=== PATIENT | female | born 1960 | race Caucasian/White ===

== ENCOUNTER 2019-11-06 12:54 | Outpatient (CLI) | payer BC, SELFPAY ==
--- NOTE | 2019-11-06 13:11 | MR_ITS ---
WS: [id number] MRI BRAIN, ORBITS WITH AND WITHOUT CONTRAST HISTORY: VISION CHANGES COMPARISON: 12/13/2007 TECHNIQUE: Multiplanar imaging performed through the brain with Prohance 20 ml's IV. No acute infarcts are seen. Sheehan-white matter differentiation is well preserved. No susceptibility artifacts or prior lacunar infarcts. Ventricles and extra-axial spaces are normal. Clivus and pituitary gland are normal. Mild inferior descent beyond the foramen magnum of the RIGHT cerebellar tonsil. There is mild pegging tonsil. 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 Similar to the prior stud y. Similar appearance to the prior examination. Orbits: Retrobulbar fat is normal. Optic nerves and the extraocular muscles are normal. There is no e vini, atrophy or enlargement. No enhancement of the optic nerves. No flattening of the optic disc. No masses or abnormal enhancement along the optic radiations. Postcontrast images are negative for masses or vascular malformations. Dural venous sinuses are normal. Paranasal sinuses: Well aerated with no significant disease. Mastoid air cells: Normal. Calvarium and scalp: Normal. MR/MR head orbits wo/w* [id number] IMPRESSION: 1. Negative MRI orbits. No enhancing masses or optic nerve edema. 2. Mild inferior descent of the RIGHT cerebellar tonsil. Mild Chiari malformat ion was described on 12/13/2007. 3. No enhancing masses or prior infarcts.
== END 2019-11-06 12:55 | disposition home or self-care (01) ==
LOC: RADSHAW 13:01
PROVIDERS: PCP Internal Medicine; Visit Provider Internal Medicine
DX: H53.9 Unspecified visual disturbance (principal)
CPT/HCPCS: 70543; 70553; A9579

== ENCOUNTER → 2020-03-12 09:35 | Outpatient (BNVA) | payer BC, SELFPAY | PROVIDERS: PCP Internal Medicine; Visit Provider Nurse Practitioner Family | DX: Z20.828 Contact with and (suspected) exposure to other viral communicable diseases (principal) | CPT/HCPCS: 87635 ==

== ENCOUNTER → 2020-03-17 12:36 | Outpatient (BNVA) | payer BC, SELFPAY | PROVIDERS: PCP Internal Medicine; Visit Provider Nurse Practitioner Family | DX: Z20.828 Contact with and (suspected) exposure to other viral communicable diseases (principal) | CPT/HCPCS: 87635 ==

== ENCOUNTER → 2020-05-06 08:26 | Outpatient (BNVA) | payer BC, SELFPAY | PROVIDERS: PCP Internal Medicine; Visit Provider Nurse Practitioner Family | DX: Z20.828 Contact with and (suspected) exposure to other viral communicable diseases (principal) | CPT/HCPCS: 87635 ==

== ENCOUNTER 2020-07-01 13:35 | Outpatient (CLI) | payer BC, SELFPAY ==
--- NOTE | 2020-07-01 13:41 | XRR_ITS ---
PROCEDURE INFORMATION: Exam: XR Abdomen Exam date and time: 07/01/2020 2:14 PM Age: 60 years old Clinical indication: Pain; Other: RT flank; Prior surgery; Surgery type: Tubal, gb, appy; Additional info: R flank pain TECHNIQUE: Imaging protocol: XR of the abdomen. Views: Frontal supine view of the abdomen. 1 View. COMPARISON: No relevant prior studies available. FINDINGS: Gastrointestinal tract: Normal. No bowel dilation. Bones/joints: Unremarkable. XR/XR KUB [id number] IMPRESSION: No acute findings.
== END 2020-07-01 13:36 | disposition home or self-care (01) ==
LOC: RAD 13:38
PROVIDERS: PCP Internal Medicine; Visit Provider Internal Medicine
DX: R10.9 Unspecified abdominal pain (principal)
CPT/HCPCS: 74018

== ENCOUNTER 2020-07-07 09:41 | Outpatient (CLI) | payer BC, SELFPAY ==
--- NOTE | 2020-07-07 09:46 | MM_ITS ---
WS: [id number] SCREENING DIGITAL MAMMOGRAM WITH CAD HISTORY: SCREENING COMPARISON: 12/22/2018, 03/02/2017 and 02/12/2016 Bilateral CC and MLO views submitted. Computer aided detection analyzed. Breast composition: There are scattered areas of fibroglandular density. Lobulated soft tissue mass m easuring 7.5 mm seen on the LEFT CC projection in the posterior mid depth. Not definitely seen on the lateral projection. There is an ovoid nodule which is smooth-walled and not lobulated inferior to th e nipple line. Otherwise benign calcifications in each breast. MM/[place] [id number] IMPRESSION: BI-RADS: 0-Incomplete: Need additional imaging evaluation FOLLOW UP: Need Additional Imaging LEFT breast: Spot compression views (CC and MLO). True ML. Ultrasound to follow if abnormality persists.
== END 2020-07-07 09:42 | disposition home or self-care (01) ==
LOC: RADSHAW 09:44
PROVIDERS: PCP Internal Medicine; Visit Provider Internal Medicine
DX: Z12.31 Encounter for screening mammogram for malignant neoplasm of breast (principal); N63.20 Unspecified lump in the left breast, unspecified quadrant
CPT/HCPCS: 77067

== ENCOUNTER 2020-07-10 09:34 | Outpatient (CLI) | payer BC, SELFPAY ==
--- NOTE | 2020-07-10 09:37 | US_ITS ---
WS: [id number] ADDITIONAL VIEWS LEFT MAMMOGRAM LEFT BREAST ULTRASOUND HISTORY: ABNORMAL MAMMOGRAM COMPARISON: 07/07/2020, 12/22/2018 LEFT MAMMOGRAM: Spot compression views and true ML. Slightly lobulated mass in the central LEFT breast near 6:00 measures 6 x 8 mm persists on additional views. No distortion. No calcifications. LEFT BREAST ULTRASOUND 2-D and color Doppler imaging submitted. Ultrasound at 6:00, 4 cm from the nipple demonstrates a lobulated very hypoechoic mass poorly defined margins. There is a cystic and solid component in the mass is taller than wide. Mass measures 3 x 7 x 6 mm. US/US breast LT limited* [id number] IMPRESSION: BI-RADS: 4-Suspicious Finding-Biopsy Should Be Considered FOLLOW UP: Biopsy Recommended Ultrasound-guided biopsy recommended LEFT breast mass at 6:00.
== END 2020-07-10 09:35 | disposition home or self-care (01) ==
LOC: RADSHAW 09:35
PROVIDERS: PCP Internal Medicine; Visit Provider Internal Medicine
DX: R92.8 Other abnormal and inconclusive findings on diagnostic imaging of breast (principal); N63.25 Unspecified lump in the left breast, overlapping quadrants
CPT/HCPCS: 76642; 77065

== ENCOUNTER 2020-07-22 12:00 | Outpatient (CLI) | payer BC, SELFPAY ==
--- NOTE | 2020-07-22 12:04 | US_ITS ---
WS: [id number] ULTRASOUND-GUIDED LEFT BREAST BIOPSY HISTORY: ABNORMAL MAMMOGRAM COMPARISON: 07/10/2020 and 07/07/2020 Procedure, risks and complications are explained to the patient. Medications are reviewed. Consent is obtained. The mass in the LEFT breast is localized with ultrasound. Mass appears more cystic today at the 6:00 location. This may collapsed with the biopsy. Skin is cleansed with ChloraPrep and anesthetized with 1% buffered lidocaine. Small dermatome is made. Under sterile conditions mass is biopsied with a 14-g auge Achieve needle. Multiple core biopsies are performed. Material placed in formalin and sent [facility]. No complications encountered. Breast tissue marker (Bard ultrasound enhanced ribbon): Single. Patient left the radiology suite with no complications. Patient is instructed to return to [facility] with any concerns. US/[place] [id number] IMPRESSION: 1. Uncomplicated core needle biopsy cystic mass at 6:00 LEFT breast. Only 2 bi opsies performed as this mass collapsed after the second biopsy. PATHOLOGY: Fragments of benign breast tissue with apocrine metaplasia and colum jed cell hyperplasia. No atypia or malignancy. RECOMMENDATION: Diagnostic LEFT mammogram 6 months.
== END 2020-07-22 12:01 | disposition home or self-care (01) ==
PROVIDERS: PCP Internal Medicine; Visit Provider Internal Medicine
DX: R92.8 Other abnormal and inconclusive findings on diagnostic imaging of breast (principal); N63.25 Unspecified lump in the left breast, overlapping quadrants
CPT/HCPCS: 19083; 88305

== ENCOUNTER 2020-08-20 15:25 | Outpatient (CLI) | payer BC, SELFPAY ==
[2020-08-20 16:14] LABS: D Dimer 0.38 ug/mIFEU (0-0.59)
== END 2020-08-20 15:26 | disposition home or self-care (01) ==
PROVIDERS: PCP Internal Medicine; Visit Provider Nurse Practitioner
DX: U07.1 COVID-19 (principal)
CPT/HCPCS: 85378

== ENCOUNTER 2020-08-22 05:54 | Outpatient (CLI) | payer BC, SELFPAY ==
--- NOTE | 2020-08-22 06:14 | AMB.MCA ---
Patient Information Referred by: Teja Wagner [facility] Symptom onset date: 08/19/20 COVID 19 common symptoms: positive fever(s), chills, cough, non-productive cough, dyspnea, fatigue, body aches, headache(s), loss of sense of smell and/or taste, nasal congestion and nausea; negative productive cough COVID 19 other sytmptoms: positive lethargy; negative requiring oxygen or respiratory distress Severity: mild Treatment prior to arrival: acetaminophen and ibuprofen Other details: Positive COVID-19 results from [facility] scanned into the chart Criteria/Plan Inclusion/Exclusion Criteria weight >/= 40kg, + direct test </= 10 days ago and symptom onset </= 10 days ago BMI >/= 35, has immunosuppressive disease and age >/= 55 and has hypertension not requiring hospitalization, not requiring oxygen (if not chronically on oxygen) and no increase oxygen requirement (if chronically on oxygen) Patient education patient/family/caregiver received/reviewed fact sheet, Emergency Use Authorization/unapproved drug status discussed with patient/family/caregiver, alternatives to this treatment discussed with patient/family/caregiver, risks and benefits of medication reviewed with patient/family/caregiver, patient/family/caregiver given opportunity for questions, which were answered and patient consents to receiving Monoclonal Antibody Treatment Plan for treatment Meets criteria for Monoclonal Antibody infusion
[2020-08-22 06:26] VITALS: BP 166/93; PULSE 94; RESP 17; TEMP 37; O2SAT 96
[2020-08-22 06:42] VITALS: PULSE 92; RESP 17; O2SAT 95
[2020-08-22 06:44] VITALS: BMI 36.3
[2020-08-22 07:03] VITALS: PULSE 93; RESP 18; O2SAT 94
[2020-08-22 07:52] VITALS: BP 134/74; PULSE 97; RESP 16; O2SAT 95
== END 2020-08-22 07:56 | disposition home or self-care (01) ==
PROVIDERS: PCP Internal Medicine; Visit Provider Nurse Practitioner
DX: U07.1 COVID-19 (principal)

== ENCOUNTER → 2020-11-18 08:13 | Outpatient (BNVA) | payer BC, SELFPAY | PROVIDERS: PCP Internal Medicine; Visit Provider Nurse Practitioner Family | DX: Z20.822 Contact with and (suspected) exposure to COVID-19 (principal) | CPT/HCPCS: 87635 ==

== ENCOUNTER → 2021-04-30 12:33 | Outpatient (BNVA) | payer BC, SELFPAY | PROVIDERS: PCP Internal Medicine; Visit Provider Nurse Practitioner Family | DX: Z20.828 Contact with and (suspected) exposure to other viral communicable diseases (principal) | CPT/HCPCS: 87426; 87635 ==

== ENCOUNTER → 2021-05-11 09:31 | Outpatient (BNVA) | payer BC, SELFPAY | PROVIDERS: PCP Internal Medicine; Visit Provider Nurse Practitioner Family | DX: Z20.828 Contact with and (suspected) exposure to other viral communicable diseases (principal) | CPT/HCPCS: 87635; 87801 ==

== ENCOUNTER 2021-06-12 07:52 | Outpatient (CLI) | payer BC, SELFPAY ==
[2021-06-12 08:40] LABS: Basophils # 0.1 10^3/uL (0.0-0.1); Basophils % 0.8 %; Eosinophils # 0.4 10^3/uL (0.0-0.8); Eosinophils % 5.8 %; Hematocrit 41.9 % (37.0-47.0); Hemoglobin 13.9 g/dL (11.5-15.3); Lymphocytes # 1.5 10^3/uL (0.8-4.8); Lymphocytes % 24.5 %; Mean Corpuscular HGB Conc 33.2 g/dL (30.0-36.0); Mean Corpuscular Hemoglobin 30.3 pg (28.0-34.0); Mean Corpuscular Volume 91.5 fl (81-99); Mean Platelet Volume 9.5 fL (7.4-10.4); Monocytes # 0.6 10^3/uL (0.2-0.9); Monocytes % 10.4 %; Neutrophils # 3.52 10^3/uL (1.8-7.7); Neutrophils % 58.3 %; Nucleated Red Blood Cells % 0 %; Platelet Count 234 10^3/cmm (130-400); Red Blood Count 4.58 10^6/uL (4.1-5.3); Red Cell Distribution Width 12.8 % (12.1-15.1)
[2021-06-12 08:54] LABS: INR 1.22 (0.8-1.2)
[2021-06-12 09:26] LABS: 25 Hydroxy Vitamin D 45 ng/mL (30-100); Alanine Aminotransferase 23 U/L (0-33); Albumin Level 4.4 g/dL (3.5-5.2); Alkaline Phosphatase 81 IU/L (35-105); Anion Gap 12.9 (5-19); Aspartate Amino Transferase 17 U/L (0-32); Blood Urea Nitrogen 20 mg/dL (6-20); Calcium 10.1 mg/dL (8.5-10.5); Carbon Dioxide 27 mmol/L (22-29); Chloride 107 mmol/L (98-107); Globulin 2.6 g/dL (1.3-4.6); Glomerular Filtration Rate 85.9 mL/min (90-130); Glucose 94 mg/dL (65-115); Osmolality Calculated 298 mOsm/kg (285-295); Potassium 3.9 mmol/L (3.5-5.1); Sodium 143 mmol/L (136-145); Thyroid Stimulating Hormone 1.77 uIU/mL (0.27-4.20); Total Bilirubin 0.4 mg/dL (0.15-1.2)
== END 2021-06-12 07:53 | disposition home or self-care (01) ==
PROVIDERS: PCP Internal Medicine; Visit Provider Internal Medicine Medical Oncology
DX: I82.4Z3 Acute embolism and thrombosis of unspecified deep veins of distal lower extremity, bilateral (principal); I10 Essential (primary) hypertension; Z79.899 Other long term (current) drug therapy; Z79.01 Long term (current) use of anticoagulants
CPT/HCPCS: 36415; 80053; 82306; 84443; 85025; 85610

== ENCOUNTER 2021-06-16 15:50 | Outpatient (CLI) | payer BC, SELFPAY ==
--- NOTE | 2021-06-16 18:37 | ONC FU_ITS ---
Dr. Taylor Patient Follow-Up Note Patient: Enrrique Bo Unit #: [id number]: 1960 Dicatated By: Cristobal Taylor M.D.Date of Visit:Jun 16, 2021 Onc Med Follow-up/Prog Note Chief Complaint: Recurrent thrombosis/factor V Leiden mutation. History of Present Illness: This is a 60 year-old woman who is known to be heterozygous for the factor V Leiden mutation. She has had recurrent episodes of thromboembolism. Her records indicated that she had both deep vein thrombosis and pulmonary emboli. I was not able to find actual documentation for that. She also has had some episodes of superficial thrombophlebitis in the lower extremities, and she was confirmed to be heterozygous for the factor V Leiden mutation. She had remained chronically anticoagulated with warfarin. As of her followup visit in August 2017 she was able to transition her anticoagulation to rivaroxaban 20 mg daily. During follow-up she has tolerated the rivaroxaban with no adverse effects, and she has had no further thromboembolism. Her other medical illnesses include hypertension, GERD, migraine headaches, degenerative disease of the cervical spine, fibromyalgia, and depression. She has a history of systemic lupus erythematosus for which she had previously been on treatment with methotrexate and Plaquenil. She is a nonsmoker. She is seen for a follow-up visit. She has been feeling good generally. She does have some fatigue, but she says she has been working a lot. Her ECOG score is 0. She has good appetite. She has no fever, night sweats, or hot flashes. She does report having some sinus drainage. She does not complain of cough, and she has not been having shortness of breath or chest pain. She has no GI or complaints. She does have some joint pain, but it is not enough to affect her activity. She has headaches at least 2 or 3 days a week. She does not complain of dizziness. She occasionally has numbness in her right arm. She has no other focal neurologic symptoms. She does report having easy bruising. She has had no other bleeding manifestations. Medications: amLODIPine Besylate 1 Tablet (of 5 mg) Oral daily, Cholecalciferol 1 Capsule (of 5000 Unit(s)) Oral daily, hydroCHLOROthiazide 1 Tablet (of 25 mg) Oral daily, Immune Support Tablet, chewable Oral Take as Directed, Levothyroxine Sodium 1 Tablet (of 75 mcg) Oral daily, Losartan Potassium 1 Tablet (of 25 mg) Oral daily, Restasis (0.05 %) Emulsion Ophthalmic b.i.d., Unisom SleepTabs 1 Tablet (of 25 mg) Oral at bedtime, Vitamin B Complex 1 Tablet Oral daily, Wellbutrin SR 1 Tablet (of 150 mg) Tablet SR 12 HR Oral daily, Xarelto 1 Tablet (of 20 mg) Oral daily Allergies: Bactrim DS Vital Signs: Performed on Jun 16, 2021 16:07 Height - 68.00 in Weight - 239.4 lbs (HIGH) BSA - 2.21 sq.m BMI - 36.40 (HIGH) Temperature - 97.4 F (LOW) Pulse - 97 /min Respiration - 18 /min BP - 154/83 mm(hg) (HIGH) O2 Sat - 98 % Pain - 0 Fatigue - 4 Physical Examination: Constitutional - She looks good generally, Eyes - Sclerae nonicteric. Conjunctivae clear, ENMT - No lesions noted in the oral cavity, Hematologic/Lymphatic - No cervical, clavicular or axillary adenopathy, Respiratory - Lungs are clear with good air movement bilaterally, Cardiovascular - Heart rhythm is regular. There is no murmur, gallop, or rub noted, Abdomen - Soft. Liver and spleen are not enlarged. There is no abdominal mass or ascites noted and there is no inguinal adenopathy, Extremities - No edema, Neurologic - No focal neurologic deficits noted. Lab/Imaging: Test performed on Jun 12, 2021 08:11 Sodium 143 mmol/L TSH 1.77 uIU/mL Vitamin D (25-Hydroxy), Total 45 ng/mL Potassium 3.9 mmol/L Chloride 107 mmol/L CO2 27 mmol/L Anion Gap 12.9 BUN 20 mg/dL Creatinine 0.7 mg/dL Cr Clearance (Est) 144.9100 mL/min eGFR 85.9 mL/min Glucose 94 mg/dL Osmolality - Calculated 298 mOsm/kg Calcium 10.1 mg/dL Protein, Total 7.0 g/dL Albumin 4.4 g/dL Globulin 2.6 g/dL Bilirubin, Total 0.4 mg/dL ALT (SGPT) 23 U/L AST (SGOT) 17 U/L Alkaline Phosphatase 81 IU/L PT 15.70 SECONDS WBC 6.0 10 3/uL INR 1.22 RBC 4.58 10 6/uL HGB 13.9 g/dL HCT 41.9 % MCV 91.5 fl MCH 30.3 pg MCHC 33.2 g/dL RDW 12.8 % Platelet Count 234 10 3/cmm MPV 9.5 fL Neutrophils 3.52 10 3/uL Lymphocytes 1.5 10 3/uL Monocytes 0.6 10 3/uL Eosinophils 0.4 10 3/uL Basophils 0.1 10 3/uL Neutrophil % 58.3 % Lymphocyte % 24.5 % Monocyte % 10.4 % Eosinophil % 5.8 % Basophils % 0.8 % NRBC % 0 % Problem List: 1. 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 2. Hypertension. 3. Chronic migraine. 4. Degenerative arthritis/degenerative disease of the cervical spine. 5. Fibromyalgia. 6. She has a history of systemic lupus erythematosus, which has been inactive and has not been requiring treatment. 7. She has a history of depression. Problems Addressed with this Encounter and Plan: Patient with recurrent episodes of superficial thrombophlebitis involving the lower extremities. Her medical records also indicated prior history of deep vein thrombosis and pulmonary emboli. She was confirmed to have heterozygosity for the factor V Leiden mutation. She has been on chronic anticoagulation. As of August 2017 her treatment was transitioned to rivaroxaban 20 mg daily. During follow-up she has tolerated it with no adverse effects and with no evidence of any further thromboembolism. At this point she appears to be doing well clinically. She continues anticoagulation rivaroxaban 20 mg daily, and she will continue her regular follow-up with Dr. Sanders. I will see her again in 1 year. Signed By: Cristobal Taylor M.D. <<Signature on File>>
== END 2021-06-16 15:51 | disposition home or self-care (01) ==
LOC: ONCMED 15:51
PROVIDERS: PCP Internal Medicine; Visit Provider Internal Medicine Medical Oncology
DX: D68.51 Activated protein C resistance (principal); I82.4Z3 Acute embolism and thrombosis of unspecified deep veins of distal lower extremity, bilateral; I10 Essential (primary) hypertension; Z79.899 Other long term (current) drug therapy; K21.9 Gastro-esophageal reflux disease without esophagitis
CPT/HCPCS: G0463

== ENCOUNTER 2021-07-23 15:28 | Outpatient (CLI) | payer BC, SELFPAY ==
--- NOTE | 2021-07-23 15:40 | MM_ITS ---
WS: [id number] DIAGNOSTIC BILATERAL 3D TOMOSYNTHESIS DIGITAL MAMMOGRAM WITH CAD HISTORY: 6 MO F/U LT BREAST MASS, benign mass. COMPARISON: 07/22/2020, 07/10/2020 and 07/07/2020 TECHNIQUE: Bilateral craniocaudad, mediolateral oblique, and mediolateral views are submitted. Spot c ompression 3-D LEFT MLO and cc. Computer aided detection utilized. Breast composition: There are scattered areas of fibroglandular density. Biopsy clip along the 6:00 a xis LEFT breast with no adjacent nodule or mass. The asymmetry in the anterior RIGHT breast is stable . No new or increasing mass or calcification. MM/[place] [id number] IMPRESSION: BI-RADS: 2-Benign FOLLOW UP: 1 Year Follow-up
== END 2021-07-23 15:29 | disposition home or self-care (01) ==
PROVIDERS: PCP Internal Medicine; Visit Provider Internal Medicine
DX: N64.89 Other specified disorders of breast (principal)
CPT/HCPCS: 77062

== ENCOUNTER 2022-07-15 14:11 | Oncology outpatient (recurring) (ONCR) | payer BC, SELFPAY ==
[2022-07-15 14:47] LABS: Basophils % 0.6 %; Eosinophils # 0.2 10^3/uL (0.0-0.8); Eosinophils % 2.8 %; Hematocrit 42.9 % (37.0-47.0); Hemoglobin 14.2 g/dL (11.5-15.3); Lymphocytes # 1.7 10^3/uL (0.8-4.8); Lymphocytes % 26.2 %; Mean Corpuscular HGB Conc 33.1 g/dL (30.0-36.0); Mean Corpuscular Hemoglobin 30.3 pg (28.0-34.0); Mean Corpuscular Volume 91.5 fl (81-99); Mean Platelet Volume 9.5 fL (7.4-10.4); Monocytes # 0.6 10^3/uL (0.2-0.9); Monocytes % 9.2 %; Neutrophils # 3.97 10^3/uL (1.8-7.7); Nucleated Red Blood Cells % 0 %; Platelet Count 241 10^3/cmm (130-400); Red Blood Count 4.69 10^6/uL (4.1-5.3); Red Cell Distribution Width 12.6 % (12.1-15.1); White Blood Count 6.5 10^3/uL (4.0-10.0)
[2022-07-15 15:11] LABS: Alanine Aminotransferase 21 U/L (0-33); Albumin Level 4.5 g/dL (3.5-5.2); Alkaline Phosphatase 75 U/L (35-105); Anion Gap 13.5 (5-19); Aspartate Amino Transferase 18 U/L (0-32); Blood Urea Nitrogen 14 mg/dL (8-23); Calcium 9.6 mg/dL (8.5-10.5); Carbon Dioxide 29 mmol/L (22-29); Chloride 101 mmol/L (98-107); Globulin 2.6 g/dL (1.3-4.6); Glomerular Filtration Rate 63.9 mL/min (90-130); Glucose 99 mg/dL (65-115); Osmolality Calculated 291 mOsm/kg (285-295); Potassium 3.5 mmol/L (3.5-5.1); Sodium 140 mmol/L (136-145); Total Bilirubin 0.2 mg/dL (0.15-1.2); Total Protein 7.1 g/dL (6.6-8.7)
== END 2022-07-30 23:59 | disposition home or self-care (01) ==
PROVIDERS: PCP Internal Medicine; Visit Provider Nurse Practitioner Family
DX: I80.299 Phlebitis and thrombophlebitis of other deep vessels of unspecified lower extremity (principal); Z79.01 Long term (current) use of anticoagulants
CPT/HCPCS: 36415; 80053; 85025

== ENCOUNTER 2022-10-07 06:47 | Outpatient (CLI) | payer BC, SELFPAY ==
--- NOTE | 2022-10-07 | US_ITS ---
WS: [id number] ULTRASOUND SOFT TISSUE ABDOMEN CLINICAL INFORMATION: LUMP COMPARISON: None. FINDINGS: Ultrasound abdomen limited in the area of concern about the hysterectomy scar. In the area of concern, no evidence of underlying cystic or solid lesions. No fluid collections. No herniated bow el. No other suspicious findings. US/US abdomen limited [id number] IMPRESSION: No suspicious findings in the area of concern. This can be further evaluated CT abdomen pelvis if persistent concern.
== END 2022-10-07 06:48 | disposition home or self-care (01) ==
LOC: RAD 06:50
PROVIDERS: PCP Internal Medicine; Visit Provider Nurse Practitioner Family
DX: R19.00 Intra-abdominal and pelvic swelling, mass and lump, unspecified site (principal); R50.9 Fever, unspecified
CPT/HCPCS: 76705

== ENCOUNTER 2022-12-02 15:09 | Outpatient (CLI) | payer BC, SELFPAY ==
--- NOTE | 2022-12-02 15:27 | MM_ITS ---
WS: [id number] Bilateral screening 3D tomosynthesis digital mammogram, 12/02/2022 Clinical Data: SCREENING Comparison: 07/23/2021, 07/10/2020, 07/07/2020, 12/22/2018, 12/13/2017, 03/02/2017, 02/16/2017, 02/12/2016, 01/03/2015, 11/21/2013, 09/06/2006. Findings: The breast parenchymal pattern shows fibroglandular tissue. No spiculated masses or clustered calcifi cations are seen. There are no secondary signs of carcinoma. There is a biopsy clip in the central po rtion of the left breast. MM/[place] [id number] Impression: 1. Negative bilateral mammogram unchanged. 2. Recommend annual screening mammograms. BIRADS: 1-Negative FOLLOW UP: 1 Year Follow-up The CAD purchase order checker was used.
== END 2022-12-02 15:10 | disposition home or self-care (01) ==
PROVIDERS: PCP Internal Medicine; Visit Provider Internal Medicine
DX: Z12.31 Encounter for screening mammogram for malignant neoplasm of breast (principal)
CPT/HCPCS: 77063; 77067

== ENCOUNTER 2024-02-01 12:25 | Outpatient (CLI) | payer BC, SELFPAY ==
--- NOTE | 2024-02-01 12:34 | MM_ITS ---
WS: [id number] BILATERAL 3D TOMOSYNTHESIS DIGITAL SCREENING MAMMOGRAPHY WITH CAD CLINICAL INFORMATION: SCREENING HISTORY: Screening mammogram. No current complaints. COMPARISON: 2022 TECHNIQUE: Bilateral CC and MLO views. FINDINGS: Scattered fibroglandular densities bilaterally. No suspicious focal mass, asymmetry, calcifications, or architectural distortion. No evidence of malignancy. Stable biopsy clip LEFT breast. Few incidenta l punctate calcifications. MM/MM scr BI tomosynthesis [id number] IMPRESSION: DENSITY: There are scattered areas of fibroglandular density. BI-RADS: 2 - Benign. FOLLOW UP: 1 Year Follow-up Recommend return to annual screening mammography.
--- NOTE | 2024-02-01 12:34 | XR_ITS ---
WS: [id number] SCREENING DEXA SCAN [employer] CLINICAL INFORMATION: ASYMPTOMATIC POSTMENOPAUSAL STATUS COMPARISON: None. FINDINGS: The L1-L4 bone mineral density measures 1.210 g/cm2. This corresponds to a T score score of 0.3 and Z score of 0.4. Left femoral neck bone mineral density measures 1.180 g/cm2. This corresponds to a T score of 1.4 and Z score of 1.5. Right femoral neck bone mineral density measures 1.167 g/cm2. This corresponds to a T score 1.3of and Z score of 1.4. Mean femoral neck bone mineral density measures 1.174 g/cm2. This corresponds to a T score of 1.3 and Z score of 1.5. XR/XR DEXA axial skeleton* [id number] IMPRESSION: Normal bone mineralization. Patient's FRAX calculated 10 year probability for major osteoporotic fracture i s 4.9% and osteoporotic hip fracture is 0.0%.
== END 2024-02-01 12:26 | disposition home or self-care (01) ==
LOC: RAD 12:26
PROVIDERS: PCP Internal Medicine; Visit Provider Internal Medicine
DX: Z12.31 Encounter for screening mammogram for malignant neoplasm of breast (principal); Z78.0 Asymptomatic menopausal state
CPT/HCPCS: 77063; 77067; 77080

== ENCOUNTER 2024-08-14 10:40 | Outpatient (CLI) | payer BC, SELFPAY ==
--- NOTE | 2024-08-14 10:45 | MR_ITS ---
WS: [id number] MRI HEAD WITHOUT CONTRAST TECHNIQUE: Sagittal T1, T2 axial, T2 axial FLAIR, axial and coronal T1 images, axial susceptibility weighted imaging, axial diffusion weighted images, and coronal T2 images were obtained. CLINICAL INFORMATION: INVOLUNTARY MOVEMENTS/MIGRAINE HEADACHE COMPARISON: MRI 2020 FINDINGS: No evidence of restricted diffusion to suggest acute ischemia. Ventricular system and basal cisterns are patent. Minimal small vessel changes. No significant parenchymal volume loss. Normal posterior fossa. Normal vascular flow voids at the skull base. No extra-axial fluid collections. No evidence of m ass or mass effect. Paranasal sinuses and mastoid air cells are well aerated. Incidental RIGHT eccentric Chiari I malformation previously described. Normal fourth ventricle. No hemosiderin on the susceptibility weighted images. Normal optic chiasm and pituitary infundibulum. Temporal lobes and hippocampal formations are normal in appearance. MR/MR head wo con* [id number] IMPRESSION: 1. No evidence of restricted diffusion to suggest acute ischemia. 2. Minimal small vessel changes. No significant parenchymal volume loss. 3. No other acute findings.
== END 2024-08-14 10:41 | disposition home or self-care (01) ==
LOC: RAD 10:41
PROVIDERS: PCP Internal Medicine; Visit Provider Nurse Practitioner Family
DX: R25.9 Unspecified abnormal involuntary movements (principal); G43.909 Migraine, unspecified, not intractable, without status migrainosus; G93.5 Compression of brain
CPT/HCPCS: 70551